=== PATIENT | female | born 1995 | race Caucasian/White ===

== ENCOUNTER 2018-10-09 23:27 | Emergency (ER) | payer OTHER ==
[~2018-10-09] VITALS: Ht 162.6 cm; Wt 52.2 kg
--- NOTE | 2018-10-09 23:30 | NUR ---
ED Nurse Note: RECIEVED PT ON [facility] AWAKE, ALERT AND ORIENTED X 4, PT HERE WITH LACERATION TO MID ANTERIOR FOREHEAD, S/P HIT HEAD ON GLASS TABLE AT HOUSE, DENIES K.O, LAC IS BLEEDING, CONTROLLED WITH PRESSURE DRESSING APPLIED, PT DENIES ANY OTHER INJURIES OR COMPLAINTS.
[2018-10-09] MEDS ORDERED: Lidocaine 1% 10mg/ml/Epi 0.005mg/ml 30ml vial INJ ONE (23:45)
--- NOTE | 2018-10-09 23:45 | NUR ---
ED Nurse Note: MD AT BEDSIDE APPLYING SUTURES TO PT. PT TOLERATING WELL.
[2018-10-10] MEDS ORDERED: BACITRACIN ZIN1 EACH TOPIC (00:22)
[2018-10-10 01:15] VITALS: BP 129/58
--- NOTE | 2018-10-10 01:15 | NUR ---
ED Nurse Note: PT BEING D/C TO HOME, TOLERATED SUTURES WELL, DERMABOND ALSO APPLIED, PT GIVEN F/U INFO AND AFTER CARE INSTRUCTIONS, PT RE-VERBALIZES S/S TO MONITOR FOR AND PROPER MEDICATION ADMINISTRATION, PT IS AMBUOLATORY, NO PAIN, NO SOB OR LABORED BREATHING, ARMBAND REMOVED, PT WITH FRIEND, NAD NOTED DURING D/C TO HOME.
[2018-10-10 01:30] VITALS: BP 129/58
--- NOTE | 2018-10-13 13:33 | Emergency Room Report ---
History of Present Illness General Chief Complaint: Laceration Source: Patient Present Illness HPI Patient is a 23-year-old female presented after increased bleeding from his scalp laceration. Patient reportedly had hit her head and subsequently had scalp injury. Patient denies any loss of consciousness. She denies any severe pain. She states that she injured herself on broken glass. She reports having up-to-date tetanus vaccine. She denied loss of consciousness.Patient reports having injury just prior to arrival. Allergies: Coded Allergies: PEANUT (Verified Allergy, Unknown, 10/09/18) Patient History Past Medical History: see triage record Last Menstrual Period: 09/19/ : 1 Para: 0 Reviewed Nursing Documentation: PMH: Agreed; PSxH: Agreed Nursing Documentation-PMH Past Medical History: No Stated History Review of Systems All Other Systems: negative except mentioned in HPI Physical Exam Vital Signs Date Time Temp Pulse Resp B/P (MAP) Pulse Ox O2 Delivery O2 Flow Rate FiO2 10/09/18 23:30 98.2 89 18 120/70 98 Room Air Sp02 EP Interpretation: reviewed, normal General Appearance: normal inspection, GCS 15 Head: atraumatic ENT: normal ENT inspection, hearing grossly normal, normal voice Neck: normal inspection, full range of motion, supple, no bony tend Respiratory: normal inspection, lungs clear, normal breath sounds, no respiratory distress, no retraction, no wheezing Cardiovascular #1: regular rate, rhythm, no edema Gastrointestinal: normal inspection, normal bowel sounds, non tender, soft, no guarding, no hernia Genitourinary: no CVA tenderness Musculoskeletal: normal inspection, back normal, normal range of motion Neurologic: normal inspection, alert, oriented x3, responsive, retail consultant III-XII nml as tested, speech normal Psychiatric: normal inspection, judgement/insight normal, mood/affect normal Skin: normal inspection, normal color, no rash Procedures Laceration/Wound Repair Laceration/Wound Repair : Wound Location: face Wound's Depth, Shape: linear Wound Length (cm): 1 Irrigated w/ Saline (ccs): 30 Suture Size/Type: 5:0 Number of Sutures: 4 Layer Closure?: Yes Number Deep Layer Sutures: 3 Patient Tolerated: Well Complications: None Medical Decision Making Diagnostic Impression: Primary Impression: Laceration ER Course Patient presented for laceration. Differential diagnoses included foreign body , nerve injury, arterial injury among others.Laceration was sutured and patient was advised suture removal in 5-7 days. She is advised to return if she began having any worsening pain persistent vomiting or other concerns. Last Vital Signs Date Time Temp Pulse Resp B/P (MAP) Pulse Ox O2 Delivery O2 Flow Rate FiO2 10/10/18 01:30 98.4 78 15 129/58 100 Room Air Status: improved Disposition: HOME, SELF-CARE Condition: Stable Scripts Bacitracin Zinc* (BACITRACIN ZINC*) 1 Each Packet 1 APPLIC TOPIC THREE TIMES A DAY, #30 PACKET Prov: David Voss MD 10/10/18 Referrals: NOT CHOSEN IPA/,REFERRING (PCP) Patient Instructions: Facial Laceration David Voss MD Oct 13, 2018 13:33
== END 2018-10-10 01:30 | disposition home or self-care (01) ==
LOC: EMR 23:41
DX: S01.01XA Laceration without foreign body of scalp, initial encounter (principal); W25.XXXA Contact with sharp glass, initial encounter; Y92.9 Unspecified place or not applicable; Z91.010 Allergy to peanuts
CPT/HCPCS: 99283

== ENCOUNTER 2018-10-17 14:26 | Emergency (ER) | payer OTHER ==
[~2018-10-17] VITALS: Ht 167.6 cm; Wt 54.4 kg
[~2018-10-17 14:26] MED LIST: BACITRACIN ZIN1 EACH TOPIC
[2018-10-17 14:34] VITALS: BP 115/71
[2018-10-17] MEDS ORDERED: NKM (14:37)
--- NOTE | 2018-10-17 15:31 | Emergency Room Report ---
History of Present Illness General Chief Complaint: Wound Recheck/Suture Removal Source: Patient Present Illness HPI 23-year-old female presents to the emergency department for suture removal of sutures that were placed 7 days ago in the forehead. Patient denies erythema, warmth, discharge or opening of the wound. Patient reports she has some mild 4 out of 10 in severity tenderness that she describes more sensitivity with palpation. Patient denies fevers or chills she states she is up-to-date with her tetanus vaccination she denies any modifying factors at this time. Allergies: Coded Allergies: PEANUT (Verified Allergy, Unknown, 10/09/18) Patient History Past Medical History: none, see triage record Past Surgical History: none Pertinent Family History: none Last Menstrual Period: 09/16/18 Now: No : 1 Para: 0 Immunizations: UTD Reviewed Nursing Documentation: PMH: Agreed; PSxH: Agreed Nursing Documentation-PMH Past Medical History: No Stated History Review of Systems All Other Systems: negative except mentioned in HPI Physical Exam Vital Signs Date Time Temp Pulse Resp B/P (MAP) Pulse Ox O2 Delivery O2 Flow Rate FiO2 10/17/18 14:34 98.4 84 18 115/71 95 Room Air Sp02 EP Interpretation: reviewed, normal General Appearance: no apparent distress, alert, GCS 15, non-toxic Head: normocephalic, other - healed forehead lac Eyes: bilateral eye normal inspection, bilateral eye PERRL ENT: hearing grossly normal, normal voice Neck: full range of motion Respiratory: lungs clear, normal breath sounds, speaking full sentences Cardiovascular #1: regular rate, rhythm Genitourinary: normal inspection Musculoskeletal: back normal, gait/station normal, normal range of motion, non- tender Neurologic: alert, oriented x3, responsive, motor strength/tone normal, sensory intact, speech normal, grossly normal Psychiatric: judgement/insight normal Skin: normal color, no rash, warm/dry, well hydrated, wd healing/no infection noted - forehead laceration Medical Decision Making PA Attestation Dr. carrizales is my supervising Physician whom patient management has been discussed with. Diagnostic Impression: Primary Impression: Encounter for removal of sutures ER Course 23-year-old female presents to the emergency department for suture removal of sutures that were placed 7 days ago in the forehead. Patient denies erythema, warmth, discharge or opening of the wound. Patient reports she has some mild 4 out of 10 in severity tenderness that she describes more sensitivity with palpation. Patient denies fevers or chills she states she is up-to-date with her tetanus vaccination she denies any modifying factors at this time. Ddx considered but are not limited to laceration, tendon injury, cellulitis, dehiscence. Vital signs: are WNL, pt. is afebrile H&PE are most consistent with: healed laceration of the forehead with 5 sutures ORDERS: none required at this time, the diagnosis is clinical ED INTERVENTIONS: - 5 Sutures removed. DISCHARGE: At this time pt. is stable for d/c to home. Will provide printed patient care instructions, and any necessary prescriptions. Care plan and follow up instructions have been discussed with the patient prior to discharge. Last Vital Signs Date Time Temp Pulse Resp B/P (MAP) Pulse Ox O2 Delivery O2 Flow Rate FiO2 10/17/18 14:34 98.4 84 18 115/71 95 Room Air Disposition: HOME, SELF-CARE Condition: Stable Patient Instructions: Wound Check Additional Instructions: Take medications as directed. Follow up with a Primary Care Provider in 3-5 days, even if your symptoms have resolved. Return sooner to ED if new symptoms occur, or current symptoms become worse. - Please note that this Emergency Department Report was dictated using [employer] operations officer technology software, occasionally this can lead to erroneous entry secondary to interpretation by the dictation equipment. Beatriz Guthrie Oct 17, 2018 15:31
[2018-10-17] MEDS ORDERED: MEDERMA20 GM TP (15:33)
[2018-10-17 15:58] VITALS: BP 115/71
--- NOTE | 2018-10-17 16:00 | NUR ---
ED Nurse Note: Patient cleared to be d/c per ERMD. D/C instruction and prescription provided. Patient education done via discussion and handout, Patient verbalized understanding and agrees with plan. Patient ambulated out steady gait with her belongings. Wristband removed.
== END 2018-10-17 16:00 | disposition home or self-care (01) ==
LOC: EMR 15:05
DX: S01.81XD Laceration without foreign body of other part of head, subsequent encounter (principal); X58.XXXD Exposure to other specified factors, subsequent encounter; Z48.02 Encounter for removal of sutures; Z91.010 Allergy to peanuts
CPT/HCPCS: 99282